=== PATIENT | male | born 1945 | race Caucasian/White ===

== ENCOUNTER 2017-11-30 07:53 | Inpatient (IN) | payer MEDICARE, OTHER ==
[~2017-11-30 07:53] MED LIST: Acetaminophen/oxyCODONE 325-5 MG Tab PO PRN; Bisacodyl 5 MG Tab PO PRN; Bupivacaine 0.75% 30 ML SDV ONE; Dexamethasone 4 MG/ML SDV ONE; Ketamine 500 mg/10 ML MDV ONE; Lactated Ringers 1,000 ML IV SCH; Lactated Ringers 2,000 ML ONE; Lidocaine 1% 4 ML ONE; Lidocaine 1%/Sod Bicarbonate in NS 8.4% 1 ML Syringe IDERM PRN; Magnesium Hydroxide 400 MG/5 ML Susp 30 ML Cup PO PRN; Midazolam 1 MG/ML 2 ML SDV ONE; Morphine 2 MG/ML Syringe IVPUSH PRN; Morphine PF 10 MG/10 ML SDV ONE; Naloxone 0.4 MG/ML SDV IVPUSH PRN; Ondansetron 4 MG/2 ML SDV IVPUSH PRN; Propofol 200 MG/20 ML SDV ONE; Sennosides 8.6 MG Tab PO PRN; Sodium Chloride 0.9% 10 ML Syringe FLUSH PRN
[2017-11-30] MEDS ORDERED: ceFAZolin 1 GM Vial ONE (08:08)
[2017-11-30] MEDS ORDERED: Vancomycin 1 GM SDV ONE (08:08)
[2017-11-30] MEDS ORDERED: Iodine/Sodium Iodide 2% Tincture 30 ML Bottle ONE ×2 (08:09→08:37)
[2017-11-30] MEDS ORDERED: Bupivacaine 0.25% 30 ML SDV ONE (08:09)
[2017-11-30] MEDS ORDERED: fentaNYL 100 MCG/2 ML SDV ONE (08:53)
[2017-11-30] MEDS ORDERED: Phenylephrine/Normal Saline 100 MCG/ML 10 ML Syringe ONE (10:01)
[2017-11-30] MEDS ORDERED: Ondansetron 4 MG/2 ML SDV IVPUSH PRN (10:16)
[2017-11-30] MEDS ORDERED: ePHEDrine 50 MG/ML SDV IVPUSH PRN (10:16)
[2017-11-30] MEDS ORDERED: fentaNYL 100 MCG/2 ML SDV IVPUSH PRN (10:16)
[2017-11-30] MEDS ORDERED: diphenhydrAMINE 50 MG/ML SDV IVPUSH PRN (10:16)
[2017-11-30] MEDS: Morphine 8 MG, EPINEPHrine 0.3 MG, Cefuroxime 750 MG, Ketorolac 30 MG, Sodium Chloride ... ONE ×10 (10:26→13:27)
[2017-11-30] MEDS ORDERED: ePHEDrine/Normal Saline 25 MG/5 ML Syringe ONE (10:33)
[2017-11-30] MEDS ORDERED: Finasteride 5 MG Tab PO SCH ×2 (11:00→16:00)
[2017-11-30] MEDS ORDERED: Tamsulosin 0.4 MG Cap.ER PO SCH ×2 (11:00→16:00)
--- NOTE | 2017-11-30 11:04 | PCM.POSTAN ---
POST ANESTHESIA ASSESSMENT - MENTAL STATUS Mental Status: Alert, Oriented - VITAL SIGNS Pulse Rate: 79 SaO2: 97 Resp Rate: 19 Blood Pressure: 110/66 Temperature: 36.7 C - RESPIRATORY Respiratory Status: Respiratory Rate WNL, Airway Patent, O2 Saturation Stable, Supplemental Oxygen - CARDIOVASCULAR CV Status: Pulse Rate WNL, Blood Pressure Stable - GASTROINTESTINAL GI Status: No Symptoms - PAIN Pain Score: 0 - POST OP HYDRATION Hydration Status: Adequate & Stable
--- NOTE | 2017-11-30 11:08 | PCM.PREANE ---
Preanesthetic Assessment - Anesthesia/Transfusion/Family Hx Anesthesia History: Prior Anesthesia Without Reaction Family History of Anesthesia Reaction: No Transfusion History: No Prior Transfusion(s) - Review of Systems General: No Symptoms Pulmonary: No Symptoms Cardiovascular: No Symptoms, Other (History of A fib once after surgery.) Gastrointestinal: No Symptoms Neurological: No Symptoms, Other (TIA in 2010 no residual effects.) Other: Reports: None - Physical Assessment NPO Status Date: 11/29/17 NPO Status Time: 19:00 Pulse: 79 O2 Sat by Pulse Oximetry: 97 Respiratory Rate: 19 Blood Pressure: 110/66 Temperature: 36.7 C Vital Signs: Last Vital Signs Temp 36.7 C 11/30/17 11:04 Pulse 79 11/30/17 11:04 Resp 19 11/30/17 11:04 BP 110/66 11/30/17 11:04 Pulse Ox 97 11/30/17 11:04 Height: 1.8 m Weight: 105.687 kg ASA Class: 2 Mental Status: Alert & Oriented x3 Airway Class: Mallampati = 2 Dentition: Reports: Normal Dentition Thyro-Mental Finger Breadths: 1 Mouth Opening Finger Breadths: 3 ROM/Head Extension: Full Lungs: Clear to Auscultation, Normal Respiratory Effort Cardiovascular: Regular Rate, Regular Rhythm - Lab Values: Laboratory Last Values MRSA (PCR) Negative 11/15/17 12:08 Blood Type B POSITIVE 11/30/17 08:26 Gel Antibody Screen Negative 11/30/17 08:26 - Allergies Allergies/Adverse Reactions: Allergies Allergy/AdvReac Type Severity Reaction Status Date / Time No Known Allergies Allergy Verified 11/30/17 09:03 - Anesthesia Plan Beta Alena: Metoprolol Med Last Dose Date: 11/30/17 Med Last Dose Time: 06:05 - Acknowledgements Anesthesia Type Planned: Spinal Pt an Appropriate Candidate for the Planned Anesthesia: Yes Alternatives and Risks of Anesthesia Discussed w Pt/Guardian: Yes Pt/Guardian Understands and Agrees with Anesthesia Plan: Yes Additional Comments: 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 Sight hoarseness noted to voice. Binu states it grows back and has been removed several times. PreAnesthesia Questionnaire HEENT History: Reports: Other (See Below) Other HEENT History: Vocal cord lesions Cardiovascular History: Reports: High Cholesterol, Hypertension, Other (See Below) Other Cardiovascular History: Palpitations Respiratory History: Reports: None Gastrointestinal History: Reports: Hemorrhoids Genitourinary History: Reports: Retention, Urinary, Other (See Below) Other Genitourinary History: Elevated PSA Musculoskeletal History: Reports: Osteoarthritis Other Musculoskeletal History: Left hip pain, right knee pain Neurological History: Reports: CVA Psychiatric History: Reports: None Endocrine/Metabolic History: Reports: Obesity/BMI 30+ Hematologic History: Reports: None Immunologic History: Reports: None Oncologic (Cancer) History: Reports: None Dermatologic History: Reports: Other (See Below) Other Dermatologic History: Ingrown nail, actinic dermatitis - Infectious Disease History Infectious Disease History: Reports: None - Past Surgical History Head Surgeries/Procedures: Reports: None Other HEENT Surgeries/Procedures: Removal of vocal cord lesions Cardiovascular Surgical History: Reports: None Respiratory Surgical History: Reports: None GI Surgical History: Reports: None Male Surgical History: Reports: None Endocrine Surgical History: Reports: None Neurological Surgical History: Reports: None Musculoskeletal Surgical History: Reports: None Oncologic Surgical History: Reports: None Dermatological Surgical History: Reports: None - SUBSTANCE USE Smoking Status *Q: Never Smoker Second Hand Smoke Exposure: No Recreational Drug Use History: No - HOME MEDS Home Medications: Home Meds Aspirin [Halfprin] 81 mg PO BID 11/29/17 [History] Finasteride [Proscar] 5 mg PO WITHLUNCH 11/29/17 [History] L.acidoph,Paracasei, B.lactis [Probiotic] 1 cap PO DAILY 11/29/17 [History] Metoprolol Succinate [Toprol XL] 25 mg PO DAILY 11/29/17 [History] Multivitamin [Daily Multiple Vitamin] 1 tab PO DAILY 11/29/17 [History] Pravastatin [Pravachol] 20 mg PO DAILY 11/29/17 [History] Tamsulosin [Tamsulosin 24 Hr] 0.4 mg PO WITHLUNCH 11/29/17 [History] - CURRENT (IN HOUSE) MEDS Current Meds: Current Medications Aspirin (Ecotrin) 325 mg PO BID ROHIT Bisacodyl (Dulcolax) 5 mg PO DAILY PRN PRN Reason: Constipation Diphenhydramine HCl (Benadryl) 25 mg IVPUSH Q6H PRN PRN Reason: Pruritis Docusate Sodium (Colace) 100 mg PO BID ROHIT Ephedrine Sulfate (Ephedrine Sulfate) 5 mg IVPUSH ASDIRECTED PRN PRN Reason: Hypotension Famotidine (Pepcid) 20 mg PO Q12H [facility] Fentanyl (Sublimaze) 50 mcg IVPUSH Q5M PRN PRN Reason: Pain Finasteride (Proscar) 5 mg PO WITHLUNCH [facility] Lactated Ringer's (Ringers, Lactated) 1,000 mls @ 125 mls/hr IV ASDIRECTED [facility] Last Admin: 11/30/17 08:25 Dose: 125 mls/hr Cefazolin Sodium/Dextrose 2 gm (/ Premix) 50 mls @ 100 mls/hr IV Q8H [facility] Stop: 12/01/17 08:29 Ketorolac Tromethamine (Toradol) 15 mg IVPUSH Q6H PRN PRN Reason: Pain Lidocaine/Sodium Bicarbonate (Buffered Lidocaine 1% In Ns 8.4%) 0.25 ml IDERM ONETIME PRN PRN Reason: Prior to IV Start Stop: 11/30/17 18:00 Last Admin: 11/30/17 08:25 Dose: 0.25 ml Magnesium Hydroxide (Milk Of Magnesia) 30 ml PO BID PRN PRN Reason: Constipation Metoprolol Succinate (Toprol Xl) 25 mg PO DAILY [facility] Morphine Sulfate (Morphine) 2 mg IVPUSH Q2H PRN PRN Reason: Breakthrough Pain Multivitamins (Thera) 1 each PO DAILY [facility] Naloxone HCl (Narcan) 0.1 mg IVPUSH Q5M PRN PRN Reason: Oversedation Ondansetron HCl (Zofran) 4 mg IVPUSH Q6H PRN PRN Reason: Nausea/Vomiting Ondansetron HCl (Zofran) 4 mg IVPUSH ONETIME PRN PRN Reason: Nausea/Vomiting Oxycodone/Acetaminophen (Percocet 325-5 Mg) 1 - 2 tab PO Q4H PRN PRN Reason: Pain Saccharomyces Boulardii (Florastor) 250 mg PO DAILY [facility] Senna (Senna) 8.6 mg PO BID PRN PRN Reason: Constipation Simvastatin (Zocor) 10 mg PO DAILY [facility] Sodium Chloride (Saline Flush) 10 ml FLUSH ASDIRECTED PRN PRN Reason: Keep Vein Open Tamsulosin HCl (Flomax) 0.4 mg PO WITHLUNCH [facility] Discontinued Medications Bupivacaine HCl (Sensorcaine-Mpf 0.75%) Confirm Administered Dose 30 ml .ROUTE .STK-MED ONE Stop: 11/30/17 07:43 Bupivacaine HCl (Marcaine 0.25%) Confirm Administered Dose 30 ml .ROUTE .ST- MED ONE Stop: 11/30/17 08:10 Last Admin: 11/30/17 10:26 Dose: 30 ml Cefazolin Sodium (Ancef) Confirm Administered Dose 2 gm .ROUTE .ST-MED ONE Stop: 11/30/17 08:09 Last Admin: 11/30/17 10:21 Dose: 2 gm Morphine Sulfate 8 mg/Epinephrine HCl 0.3 mg/Cefuroxime Sodium 750 mg/Ketorolac Tromethamine 30 mg/Sodium Chloride 27.9 ml 0 mg .XX ONETIME ONE Stop: 11/30/17 09:01 Last Admin: 11/30/17 10:26 Dose: 788.3 mg Dexamethasone (Dexamethasone) Confirm Administered Dose 4 mg .ROUTE .[facility]-MED ONE Stop: 11/30/17 07:42 Ephedrine Sulfate (Ephedrine In Ns) Confirm Administered Dose 25 mg .ROUTE .ST- MED ONE Stop: 11/30/17 10:34 Fentanyl (Sublimaze) Confirm Administered Dose 100 mcg .ROUTE .ST-MED ONE Stop: 11/30/17 08:54 Lactated Ringer's (Ringers, Lactated) Confirm Administered Dose 2,000 mls @ as directed .ROUTE .ST-MED ONE Stop: 11/30/17 07:42 Lidocaine HCl (Xylocaine-Mpf 1%) Confirm Administered Dose 4 mls @ as directed .ROUTE .ST-MED ONE Stop: 11/30/17 07:43 Iodine (Iodine 2% Mild Tincture) Confirm Administered Dose 30 ml .ROUTE .ST- MED ONE Stop: 11/30/17 08:10 Last Admin: 11/30/17 10:19 Dose: 18 ml Iodine (Iodine 2% Mild Tincture) Confirm Administered Dose 30 ml .ROUTE .STK- MED ONE Stop: 11/30/17 08:38 Ketamine HCl (Ketalar) Confirm Administered Dose 500 mg .ROUTE .STK-MED ONE Stop: 11/30/17 07:43 Midazolam HCl (Versed 1 Mg/Ml) Confirm Administered Dose 2 mg .ROUTE .STK-MED ONE Stop: 11/30/17 07:42 Morphine Sulfate (Duramorph Pf) Confirm Administered Dose 10 mg .ROUTE .STK-MED ONE Stop: 11/30/17 07:43 Phenylephrine HCl (Phenylephrine In Ns 100 Mcg/Ml) Confirm Administered Dose 1 mg .ROUTE .STK-MED ONE Stop: 11/30/17 10:02 Propofol (Diprivan 20 Ml) Confirm Administered Dose 600 mg .ROUTE .STK-MED ONE Stop: 11/30/17 07:42 Tranexamic Acid (Cyklokapron) Confirm Administered Dose 1,000 mg .ROUTE .STK- MED ONE Stop: 11/30/17 08:09 Last Admin: 11/30/17 10:28 Dose: 1,000 mg Vancomycin HCl (Vancomycin) Confirm Administered Dose 1 gm .ROUTE .STK-MED ONE Stop: 11/30/17 08:09 Last Admin: 11/30/17 10:27 Dose: 1 gm
--- NOTE | 2017-11-30 11:26 | PCM.CONS ---
H&P History of Present Illness - General Date of Service: 11/30/17 Admit Problem/Dx: Admission Diagnosis/Problem Admission Diagnosis/Problem Osteoarthritis of hip - History of Present Illness Initial Comments - Free Text/Narative: Binu Valdivia is a 72 yo male patient of Dr. Menchaca who is post-operative day 0 of left MONY. Hospital medicine was consulted for post-operative medical care. At this time he is resting comfortably in bed. Pain is controlled. He denies any chest pain, shortness of breath, palpitations, nausea, or vomiting. He carries a history of: Vocal cord lesions, HLD, HTN, palpitations, hemorrhoids, urinary retention, elevated PSA, OA, CVA, obesity. He was never a smoker. He is a full code. His primary care provider is Dr. Abarca in [place]. Left Hip Pain Score (Numeric/FACES): 1 - Related Data Allergies/Adverse Reactions: Allergies Allergy/AdvReac Type Severity Reaction Status Date / Time No Known Allergies Allergy Verified 11/30/17 09:03 Home Medications: Home Meds Aspirin [Halfprin] 81 mg PO 06 11/29/17 [History] Finasteride [Proscar] 5 mg PO 1600 11/29/17 [History] L.acidoph,Paracasei, B.lactis [Probiotic] 1 cap PO 1600 11/29/17 [History] Multivitamin [Daily Multiple Vitamin] 1 tab PO DAILY 11/29/17 [History] Pravastatin [Pravachol] 20 mg PO DAILY 11/29/17 [History] Tamsulosin [Tamsulosin 24 Hr] 0.4 mg PO 1600 11/29/17 [History] Metoprolol Succinate [Toprol XL] 25 mg PO 11/30/17 [History] Past Medical History HEENT History: Reports: Other (See Below) Other HEENT History: Vocal cord lesions Cardiovascular History: Reports: High Cholesterol, Hypertension, Other (See Below) Other Cardiovascular History: Palpitations Respiratory History: Reports: None Gastrointestinal History: Reports: Hemorrhoids Genitourinary History: Reports: Retention, Urinary, Other (See Below) Other Genitourinary History: Elevated PSA Musculoskeletal History: Reports: Osteoarthritis Other Musculoskeletal History: Left hip pain, right knee pain Neurological History: Reports: CVA Psychiatric History: Reports: None Endocrine/Metabolic History: Reports: Obesity/BMI 30+ Hematologic History: Reports: None Immunologic History: Reports: None Oncologic (Cancer) History: Reports: None Dermatologic History: Reports: Other (See Below) Other Dermatologic History: Ingrown nail, actinic dermatitis - Infectious Disease History Infectious Disease History: Reports: None - Past Surgical History Head Surgeries/Procedures: Reports: None Other HEENT Surgeries/Procedures: Removal of vocal cord lesions Cardiovascular Surgical History: Reports: None Respiratory Surgical History: Reports: None GI Surgical History: Reports: None Male Surgical History: Reports: None Endocrine Surgical History: Reports: None Neurological Surgical History: Reports: None Musculoskeletal Surgical History: Reports: None Oncologic Surgical History: Reports: None Dermatological Surgical History: Reports: None Social & Family History - Tobacco Use Smoking Status *Q: Never Smoker Second Hand Smoke Exposure: No - Caffeine Use Caffeine Use: Reports: Coffee - Recreational Drug Use Recreational Drug Use: No Drug Use in Last 12 Months: No H&P Review of Systems - Review of Systems: Review Of Systems: See Below General: Reports: No Symptoms HEENT: Reports: No Symptoms Pulmonary: Reports: No Symptoms Cardiovascular: Reports: No Symptoms Gastrointestinal: Reports: No Symptoms Genitourinary: Reports: No Symptoms Musculoskeletal: Reports: Joint Pain Skin: Reports: No Symptoms Psychiatric: Reports: No Symptoms Neurological: Reports: No Symptoms Hematologic/Lymphatic: Reports: No Symptoms Immunologic: Reports: No Symptoms Exam - Exam Exam: See Below - Vital Signs Vital Signs: Last Vital Signs Temp 98.1 F 11/30/17 11:07 Pulse 72 11/30/17 11:10 Resp 13 11/30/17 11:10 BP 130/72 11/30/17 11:10 Pulse Ox 98 11/30/17 11:10 Weight: 233 lb - Exam Quality Assessment: Supplemental Oxygen, Urinary Catheter, DVT Prophylaxis General: Alert, Oriented, Cooperative. No: Mild Distress HEENT: Conjunctiva Clear, EACs Clear, EOMI, Hearing Intact, Mucosa Moist & [place] , Nares Patent, Posterior Pharynx Clear, PERRLA Neck: Supple, Trachea Midline. No: JVD Lungs: Clear to Auscultation, Normal Respiratory Effort Cardiovascular: Regular Rate, Regular Rhythm GI/Abdominal Exam: Normal Bowel Sounds, Soft, Non-Tender, No Organomegaly, No Distention, Pelvis Stable (Male) Exam: Deferred Rectal (Males) Exam: Deferred Back Exam: Normal Inspection, Full Range of Motion Extremities: No Pedal Edema, Normal Capillary Refill, Leg Pain (1/10), Limited Range of Motion, Other (JONEL bandage on left leg. Bandage is dry and intact. Cooling pack in place. ) Peripheral Pulses: 2+: Radial (L), Radial (R), Posterior Tibial (L), Posterior Tibial (R), Dorsalis Pedis (L), Dorsalis Pedis (R) Skin: Warm, Dry, Intact Neurological: Cranial Nerves Intact (grossly) Neuro Extensive - Mental Status: Alert, Oriented x3, Normal Mood/Affect, Normal Cognition, Memory Intact Psychiatric: Alert, Normal Affect, Normal Mood - Patient Data Lab Results Last 24 hrs: Laboratory Results - last 24 hr 11/30/17 Range/Units 08:26 Blood Type B POSITIVE Gel Antibody Screen Negative Consult PN Assessment/Plan POD#: 0 (1) S/P total hip arthroplasty SNOMED Code(s): 106514557556, 261138429340 Code(s): Z96.649 - PRESENCE OF UNSPECIFIED ARTIFICIAL HIP JOINT Priority: High Current Visit: Yes Qualifiers: Laterality: left Qualified Code(s): Z96.642 - Presence of left artificial hip joint (2) Osteoarthritis SNOMED Code(s): 855078997 Code(s): M19.90 - UNSPECIFIED OSTEOARTHRITIS, UNSPECIFIED SITE Priority: High Current Visit: Yes Qualifiers: Osteoarthritis location: hip Osteoarthritis type: primary Laterality: left Qualified Code(s): M16.12 - Unilateral primary osteoarthritis, left hip (3) HLD (hyperlipidemia) SNOMED Code(s): 97627173 Code(s): E78.5 - HYPERLIPIDEMIA, UNSPECIFIED Priority: Low Current Visit : No Qualifiers: Hyperlipidemia type: unspecified Qualified Code(s): E78.5 - Hyperlipidemia , unspecified (4) HTN (hypertension) SNOMED Code(s): 00413615 Code(s): I10 - ESSENTIAL (PRIMARY) HYPERTENSION Priority: Low Current Visit: No Qualifiers: Hypertension type: unspecified Qualified Code(s): I10 - Essential (primary ) hypertension (5) Urinary retention SNOMED Code(s): 360554148 Code(s): R33.9 - RETENTION OF URINE, UNSPECIFIED Current Visit: Yes (6) History of CVA (cerebrovascular accident) SNOMED Code(s): 814264817 Code(s): Z86.73 - PRSNL HX OF TIA (TIA), AND CEREB INFRC W/O RESID DEFICITS Current Visit: Yes Problem List Initiated/Reviewed/Updated: Yes Plan: I/P: Acute: S/P left[left/right] total hip arthroplasty - post-operative day 0 -DVT prophylaxis and pain management per primary care team -PT/OT -IS/RT -Monitor oxygen saturation -Titrate oxygen as needed -Vital signs stable -Monitor labs -Pre-operative Hgb was 15.3 -Pre-operative eGFR was 87 Osteoarthritis of left hip -Pain management per primary care team Chronic: Vocal cord lesions HLD HTN palpitations hemorrhoids urinary retention elevated PSA OA CVA obesity Plan: CM for discharge planning GI prophylaxis Home medications as indicated Other orders as listed above Routine AM labs He is a full code. His PCP is Dr. Abarca in [place] Thank you for allowing us to participate in the care of this patient!! Requesting Provider: Dr. Menchaca Date Consult Requested: 11/30/17 Reason for Consult: Post-operative medical care Patient History Reviewed: Yes Admission H&P Reviewed: Yes Time Spent (in minutes): 45
--- NOTE | 2017-11-30 11:29 | CR ---
Pelvis and left hip: AP view of the pelvis was obtained as well as AP view centered to the left hip and lateral view of the left hip. Comparison: No previous pelvis or hip exam. Left hip prosthesis is noted. Components are aligned. Underlying bony structures are intact. Soft tissue air is noted from the surgical procedure. No additional abnormality is noted. Impression: 1. Satisfactory radiographic appearance of recently placed left hip prosthesis. Diagnostic code #2
[2017-11-30] MEDS ORDERED: Simvastatin 10 MG Tab PO ONE (13:27)
[2017-11-30] MEDS: ceFAZolin 2 GM in Premix Bag 1 BAG IV SCH ×2 (15:21→23:18)
[2017-11-30] MEDS: Metoprolol Succinate 25 MG Tab.ER PO SCH (17:04)
[2017-11-30] MEDS: Famotidine 20 MG Tab PO SCH (20:45)
[2017-11-30] MEDS: Ketorolac 15 MG/ML SDV IVPUSH PRN (20:46)
[2017-11-30] MEDS: Docusate Sodium 100 MG Cap PO SCH (20:46)
[2017-12-01] MEDS ORDERED: Acetaminophen 325 MG Tab PO PRN (04:00)
[2017-12-01] MEDS: Ketorolac 15 MG/ML SDV IVPUSH PRN ×2 (06:27→12:42)
[2017-12-01] MEDS: Metoprolol Succinate 25 MG Tab.ER PO SCH (06:28)
--- NOTE | 2017-12-01 06:45 | PCM.CONSN ---
- General Info Date of Service: 12/01/17 Admission Dx/Problem (Free Text): Admission Diagnosis/Problem Admission Diagnosis/Problem Osteoarthritis of hip Subjective Update: In to see Binu. He is doing well. He has urinated. He has been up walking and working with PT/OT. No concerns from him. No concerns from nursing. Functional Status: Reports: Pain Controlled, Tolerating Diet, Ambulating, Urinating, Incentive Spirometry. Denies: New Symptoms - Review of Systems General: Reports: No Symptoms HEENT: Reports: No Symptoms Pulmonary: Reports: No Symptoms Cardiovascular: Reports: No Symptoms Gastrointestinal: Reports: No Symptoms Genitourinary: Reports: No Symptoms Musculoskeletal: Reports: Joint Pain Skin: Reports: No Symptoms Neurological: Reports: No Symptoms Psychiatric: Reports: No Symptoms - Patient Data Vitals - Most Recent: Last Vital Signs Temp 98.1 F 11/30/17 20:44 Pulse 76 12/01/17 06:28 Resp 16 12/01/17 04:00 BP 140/89 12/01/17 06:28 Pulse Ox 16 L 12/01/17 05:00 Weight - Most Recent: 243 lb 9.6 oz I&O - Last 24 Hours: Intake & Output 11/30/17 11/30/17 12/01/17 14:59 22:59 06:59 Intake Total 300 1250 1450 Output Total 200 500 400 Balance 289 571 1314 Lab Results Last 24 Hours: Laboratory Results - last 24 hr 11/30/17 Range/Units 08:26 Blood Type B POSITIVE Gel Antibody Screen Negative Med Orders - Current: Current Medications Acetaminophen (Tylenol) 650 mg PO Q6H PRN PRN Reason: Pain (moderate 4-6) Last Admin: 12/01/17 04:11 Dose: 650 mg Aspirin (Ecotrin) 325 mg PO BID [facility] Bisacodyl (Dulcolax) 5 mg PO DAILY PRN PRN Reason: Constipation Diphenhydramine HCl (Benadryl) 25 mg IVPUSH Q6H PRN PRN Reason: Pruritis Docusate Sodium (Colace) 100 mg PO BID [facility] Last Admin: 11/30/17 20:46 Dose: 100 mg Ephedrine Sulfate (Ephedrine Sulfate) 5 mg IVPUSH ASDIRECTED PRN PRN Reason: Hypotension Famotidine (Pepcid) 20 mg PO Q12H [facility] Last Admin: 11/30/17 20:45 Dose: 20 mg Finasteride (Proscar) 5 mg PO DAILY@1600 [facility] Last Admin: 11/30/17 15:22 Dose: 5 mg Cefazolin Sodium/Dextrose 2 gm (/ Premix) 50 mls @ 100 mls/hr IV Q8H [facility] Stop: 12/01/17 08:29 Last Admin: 11/30/17 23:18 Dose: 100 mls/hr Ketorolac Tromethamine (Toradol) 15 mg IVPUSH Q6H PRN PRN Reason: Pain Last Admin: 12/01/17 06:27 Dose: 15 mg Magnesium Hydroxide (Milk Of Magnesia) 30 ml PO BID PRN PRN Reason: Constipation Metoprolol Succinate (Toprol Xl) 25 mg PO [facility] Last Admin: 12/01/17 06:28 Dose: 25 mg Morphine Sulfate (Morphine) 2 mg IVPUSH Q2H PRN PRN Reason: Breakthrough Pain Multivitamins (Thera) 1 each PO DAILY [facility] Naloxone HCl (Narcan) 0.1 mg IVPUSH Q5M PRN PRN Reason: Oversedation Ondansetron HCl (Zofran) 4 mg IVPUSH Q6H PRN PRN Reason: Nausea/Vomiting Oxycodone/Acetaminophen (Percocet 325-5 Mg) 1 - 2 tab PO Q4H PRN PRN Reason: Pain Saccharomyces Boulardii (Florastor) 250 mg PO DAILY [facility] Senna (Senna) 8.6 mg PO BID PRN PRN Reason: Constipation Simvastatin (Zocor) 10 mg PO DAILY [facility] Sodium Chloride (Saline Flush) 10 ml FLUSH ASDIRECTED PRN PRN Reason: Keep Vein Open Tamsulosin HCl (Flomax) 0.4 mg PO DAILY@1600 [facility] Last Admin: 11/30/17 15:22 Dose: 0.4 mg Discontinued Medications Bupivacaine HCl (Sensorcaine-Mpf 0.75%) Confirm Administered Dose 30 ml .ROUTE .STK-MED ONE Stop: 11/30/17 07:43 Bupivacaine HCl (Marcaine 0.25%) Confirm Administered Dose 30 ml .ROUTE .STK- MED ONE Stop: 11/30/17 08:10 Last Admin: 11/30/17 10:26 Dose: 30 ml Cefazolin Sodium (Ancef) Confirm Administered Dose 2 gm .ROUTE .STK-MED ONE Stop: 11/30/17 08:09 Last Admin: 11/30/17 10:21 Dose: 2 gm Morphine Sulfate 8 mg/Epinephrine HCl 0.3 mg/Cefuroxime Sodium 750 mg/Ketorolac Tromethamine 30 mg/Sodium Chloride 27.9 ml 0 mg .XX ONETIME ONE Stop: 11/30/17 09:01 Last Admin: 11/30/17 13:27 Dose: Not Given Dexamethasone (Dexamethasone) Confirm Administered Dose 4 mg .ROUTE .STK-MED ONE Stop: 11/30/17 07:42 Ephedrine Sulfate (Ephedrine In Ns) Confirm Administered Dose 25 mg .ROUTE .STK- MED ONE Stop: 11/30/17 10:34 Fentanyl (Sublimaze) Confirm Administered Dose 100 mcg .ROUTE .STK-MED ONE Stop: 11/30/17 08:54 Fentanyl (Sublimaze) 50 mcg IVPUSH Q5M PRN PRN Reason: Pain [facility] Last Admin: 11/30/17 13:06 Dose: Not Given Lactated Ringer's (Ringers, Lactated) 1,000 mls @ 125 mls/hr IV ASDIRECTED [facility] Last Admin: 11/30/17 08:25 Dose: 125 mls/hr Lactated Ringer's (Ringers, Lactated) Confirm Administered Dose 2,000 mls @ as directed .ROUTE .STK-MED ONE Stop: 11/30/17 07:42 Lidocaine HCl (Xylocaine-Mpf 1%) Confirm Administered Dose 4 mls @ as directed .ROUTE .STK-MED ONE Stop: 11/30/17 07:43 Iodine (Iodine 2% Mild Tincture) Confirm Administered Dose 30 ml .ROUTE .STK- MED ONE Stop: 11/30/17 08:10 Last Admin: 11/30/17 10:19 Dose: 18 ml Iodine (Iodine 2% Mild Tincture) Confirm Administered Dose 30 ml .ROUTE .STK- MED ONE Stop: 11/30/17 08:38 Ketamine HCl (Ketalar) Confirm Administered Dose 500 mg .ROUTE .STK-MED ONE Stop: 11/30/17 07:43 Lidocaine/Sodium Bicarbonate (Buffered Lidocaine 1% In Ns 8.4%) 0.25 ml IDERM ONETIME PRN PRN Reason: Prior to IV Start Stop: 11/30/17 18:00 Last Admin: 11/30/17 08:25 Dose: 0.25 ml Metoprolol Succinate (Toprol Xl) 25 mg PO DAILY [facility] Midazolam HCl (Versed 1 Mg/Ml) Confirm Administered Dose 2 mg .ROUTE .STK-MED ONE Stop: 11/30/17 07:42 Morphine Sulfate (Duramorph Pf) Confirm Administered Dose 10 mg .ROUTE .STK-MED ONE Stop: 11/30/17 07:43 Ondansetron HCl (Zofran) 4 mg IVPUSH ONETIME PRN PRN Reason: Nausea/Vomiting Phenylephrine HCl (Phenylephrine In Ns 100 Mcg/Ml) Confirm Administered Dose 1 mg .ROUTE .STK-MED ONE Stop: 11/30/17 10:02 Propofol (Diprivan 20 Ml) Confirm Administered Dose 600 mg .ROUTE .STK-MED ONE Stop: 11/30/17 07:42 Simvastatin (Zocor) 10 mg PO ONETIME ONE Stop: 11/30/17 13:28 Last Admin: 11/30/17 13:44 Dose: 10 mg Tamsulosin HCl (Flomax) 0.4 mg PO WITHLUNCH [facility] Last Admin: 11/30/17 13:06 Dose: Not Given Tranexamic Acid (Cyklokapron) Confirm Administered Dose 1,000 mg .ROUTE .STK- MED ONE Stop: 11/30/17 08:09 Last Admin: 11/30/17 10:28 Dose: 1,000 mg Vancomycin HCl (Vancomycin) Confirm Administered Dose 1 gm .ROUTE .STK-MED ONE Stop: 11/30/17 08:09 Last Admin: 11/30/17 10:27 Dose: 1 gm - Exam Quality Assessment: DVT Prophylaxis General: Alert, Oriented, Cooperative, No Acute Distress HEENT: Pupils Equal, Pupils Reactive, EOMI, Mucous Membr. Moist/[place] Neck: Supple, Trachea Midline, No JVD Lungs: Clear to Auscultation, Normal Respiratory Effort Cardiovascular: Regular Rate, Regular Rhythm GI/Abdominal Exam: Normal Bowel Sounds, Soft, Non-Tender, No Distention (Male) Exam: Deferred Back Exam: Normal Inspection, Full Range of Motion Extremities: No Pedal Edema, Normal Capillary Refill, Leg Pain, Limited Range of Motion, Other (JONEL bandage and cooling pack in place on left leg ) Peripheral Pulses: 2+: Radial (L), Radial (R), Posterior Tibial (L), Posterior Tibial (R), Dorsalis Pedis (L), Dorsalis Pedis (R) Skin: Warm, Dry, Intact Wound/Incisions: Healing Well, Dressing Dry and Intact, No Drainage Neurological: No New Focal Deficit Psy/Mental Status: Alert, Normal Affect, Normal Mood Consult PN Assessment/Plan POD#: 1 (1) S/P total hip arthroplasty SNOMED Code(s): 013717410255, 691648470011 Code(s): Z96.649 - PRESENCE OF UNSPECIFIED ARTIFICIAL HIP JOINT Priority: High Current Visit: Yes Qualifiers: Laterality: left Qualified Code(s): Z96.642 - Presence of left artificial hip joint (2) Osteoarthritis SNOMED Code(s): 582219852 Code(s): M19.90 - UNSPECIFIED OSTEOARTHRITIS, UNSPECIFIED SITE Priority: High Current Visit: Yes Qualifiers: Osteoarthritis location: hip Osteoarthritis type: primary Laterality: left Qualified Code(s): M16.12 - Unilateral primary osteoarthritis, left hip (3) HLD (hyperlipidemia) SNOMED Code(s): 39309743 Code(s): E78.5 - HYPERLIPIDEMIA, UNSPECIFIED Priority: Low Current Visit : No Qualifiers: Hyperlipidemia type: unspecified Qualified Code(s): E78.5 - Hyperlipidemia , unspecified (4) HTN (hypertension) SNOMED Code(s): 66154052 Code(s): I10 - ESSENTIAL (PRIMARY) HYPERTENSION Priority: Low Current Visit: No Qualifiers: Hypertension type: unspecified Qualified Code(s): I10 - Essential (primary ) hypertension (5) Urinary retention SNOMED Code(s): 361388749 Code(s): R33.9 - RETENTION OF URINE, UNSPECIFIED Current Visit: Yes (6) History of CVA (cerebrovascular accident) SNOMED Code(s): 329453304 Code(s): Z86.73 - PRSNL HX OF TIA (TIA), AND CEREB INFRC W/O RESID DEFICITS Current Visit: Yes Problem List Initiated/Reviewed/Updated: Yes Plan: I/P: Acute: S/P left total hip arthroplasty - post-operative day 1 -DVT prophylaxis and pain management per primary care team -PT/OT -IS/RT -Monitor oxygen saturation -Titrate oxygen as needed - weaned off -Vital signs stable -Monitor labs -Pre-operative Hgb was 15.3, today 12.5 -Pre-operative eGFR was 87, today >60 Osteoarthritis of left hip -Pain management per primary care team Chronic: Vocal cord lesions HLD HTN palpitations hemorrhoids urinary retention elevated PSA OA CVA obesity Plan: CM for discharge planning GI prophylaxis Home medications as indicated Other orders as listed above Routine AM labs He is a full code. His PCP is Dr. Abarca in [place] From a hospitalist standpoint he is doing very well. He has been ambulating and working with PT/OT. He has urinated. Labs look good. Vitals are stable. He has been weaned off oxygen. From a hospitalist standpoint he is cleared for discharge pending primary team approval. Thank you for allowing us to participate in the care of this patient!!
[2017-12-01] MEDS ORDERED: Multivitamins,Therapeutic Tab PO SCH (09:00)
[2017-12-01] MEDS ORDERED: Saccharomyces Boulardii (Probiotic) 250 MG Cap PO SCH (09:00)
[2017-12-01] MEDS ORDERED: Aspirin 325 MG Tab.EC PO SCH (09:00)
[2017-12-01] MEDS ORDERED: Metoprolol Succinate 25 MG Tab.ER PO SCH (09:00)
[2017-12-01] MEDS ORDERED: Simvastatin 10 MG Tab PO SCH (09:00)
[2017-12-01] MEDS: Famotidine 20 MG Tab PO SCH (10:43)
[2017-12-01] MEDS: Docusate Sodium 100 MG Cap PO SCH (10:43)
[2017-12-01] MEDS: ceFAZolin 2 GM in Premix Bag 1 BAG IV SCH (10:44)
--- NOTE | 2017-12-01 11:44 | PCM.SURGPN ---
- General Info Date of Service: 12/01/17 POD#: 1 Functional Status: Reports: Pain Controlled, Tolerating Diet, Ambulating, Urinating, Incentive Spirometry, Other (The pt and state the pt is prepared for discharge to home.) - Review of Systems General: Denies: Fever, Chills Musculoskeletal: Reports: Other (The pt has met inpatient therapy goals.) - Patient Data Vitals - Most Recent: Last Vital Signs Temp 98.2 F 12/01/17 04:37 Pulse 76 12/01/17 06:28 Resp 16 12/01/17 07:00 BP 140/89 12/01/17 06:28 Pulse Ox 94 L 12/01/17 06:00 Weight - Most Recent: 243 lb 9.6 oz I&O - Last 24 Hours: Intake & Output 11/30/17 12/01/17 12/01/17 22:59 06:59 14:59 Intake Total 1250 1450 Output Total 500 400 Balance 750 1050 Lab Results Last 24 Hrs: Laboratory Results - last 24 hr 12/01/17 12/01/17 Range/Units 06:00 06:00 WBC 10.14 H (4.23-9.07) K/mm3 RBC 4.06 L (4.63-6.08) M/mm3 Hgb 12.5 L (13.7-17.5) gm/L Hct 38.2 L (40.1-51.0) % MCV 94.1 H (79.0-92.2) fl MCH 30.8 (25.7-32.2) pg MCHC 32.7 (32.2-35.5) g/dl RDW Std Deviation 45.3 H (35.1-43.9) fL Plt Count 174 (163-337) K/mm3 MPV 9.6 (9.4-12.3) fl Sodium 136 (136-145) mEq/L Potassium 4.0 (3.5-5.1) mEq/L Chloride 103 (98-107) mEq/L Carbon Dioxide 25 (21-32) mEq/L Anion Gap 12.0 (5-15) BUN 17 (7-18) mg/dL Creatinine 1.1 (0.7-1.3) mg/dL Est Cr Clr Drug Dosing 62.75 mL/min Estimated GFR (MDRD) > 60 (>60) mL/min BUN/Creatinine Ratio 15.5 (14-18) Glucose 112 (83-115) mg/dL Calcium 8.4 L (8.5-10.1) mg/dL Total Bilirubin 0.4 (0.2-1.0) mg/dL AST 26 (15-37) U/L ALT 14 L (16-63) U/L Alkaline Phosphatase 52 (46-116) U/L Total Protein 5.8 L (6.4-8.2) g/dl Albumin 3.1 L (3.4-5.0) g/dl Globulin 2.7 gm/dL Albumin/Globulin Ratio 1.2 (1-2) Med Orders - Current: Current Medications Acetaminophen (Tylenol) 650 mg PO Q6H PRN PRN Reason: Pain (moderate 4-6) Last Admin: 12/01/17 04:11 Dose: 650 mg Aspirin (Ecotrin) 325 mg PO BID [facility] Last Admin: 12/01/17 10:43 Dose: 325 mg Bisacodyl (Dulcolax) 5 mg PO DAILY PRN PRN Reason: Constipation Diphenhydramine HCl (Benadryl) 25 mg IVPUSH Q6H PRN PRN Reason: Pruritis Docusate Sodium (Colace) 100 mg PO BID [facility] Last Admin: 12/01/17 10:43 Dose: 100 mg Ephedrine Sulfate (Ephedrine Sulfate) 5 mg IVPUSH ASDIRECTED PRN PRN Reason: Hypotension Famotidine (Pepcid) 20 mg PO Q12H [facility] Last Admin: 12/01/17 10:43 Dose: 20 mg Finasteride (Proscar) 5 mg PO DAILY@1600 [facility] Last Admin: 11/30/17 15:22 Dose: 5 mg Ketorolac Tromethamine (Toradol) 15 mg IVPUSH Q6H PRN PRN Reason: Pain Last Admin: 12/01/17 06:27 Dose: 15 mg Magnesium Hydroxide (Milk Of Magnesia) 30 ml PO BID PRN PRN Reason: Constipation Metoprolol Succinate (Toprol Xl) 25 mg PO [facility] Last Admin: 12/01/17 06:28 Dose: 25 mg Morphine Sulfate (Morphine) 2 mg IVPUSH Q2H PRN PRN Reason: Breakthrough Pain Multivitamins (Thera) 1 each PO DAILY [facility] Last Admin: 12/01/17 10:42 Dose: 1 each Naloxone HCl (Narcan) 0.1 mg IVPUSH Q5M PRN PRN Reason: Oversedation Ondansetron HCl (Zofran) 4 mg IVPUSH Q6H PRN PRN Reason: Nausea/Vomiting Oxycodone/Acetaminophen (Percocet 325-5 Mg) 1 - 2 tab PO Q4H PRN PRN Reason: Pain Saccharomyces Boulardii (Florastor) 250 mg PO DAILY [facility] Last Admin: 12/01/17 10:42 Dose: 250 mg Senna (Senna) 8.6 mg PO BID PRN PRN Reason: Constipation Simvastatin (Zocor) 10 mg PO DAILY [facility] Last Admin: 12/01/17 10:42 Dose: 10 mg Sodium Chloride (Saline Flush) 10 ml FLUSH ASDIRECTED PRN PRN Reason: Keep Vein Open Tamsulosin HCl (Flomax) 0.4 mg PO DAILY@1600 [facility] Last Admin: 11/30/17 15:22 Dose: 0.4 mg Discontinued Medications Bupivacaine HCl (Sensorcaine-Mpf 0.75%) Confirm Administered Dose 30 ml .ROUTE .STK-MED ONE Stop: 11/30/17 07:43 Bupivacaine HCl (Marcaine 0.25%) Confirm Administered Dose 30 ml .ROUTE .STK- MED ONE Stop: 11/30/17 08:10 Last Admin: 11/30/17 10:26 Dose: 30 ml Cefazolin Sodium (Ancef) Confirm Administered Dose 2 gm .ROUTE .STK-MED ONE Stop: 11/30/17 08:09 Last Admin: 11/30/17 10:21 Dose: 2 gm Morphine Sulfate 8 mg/Epinephrine HCl 0.3 mg/Cefuroxime Sodium 750 mg/Ketorolac Tromethamine 30 mg/Sodium Chloride 27.9 ml 0 mg .XX ONETIME ONE Stop: 11/30/17 09:01 Last Admin: 11/30/17 13:27 Dose: Not Given Dexamethasone (Dexamethasone) Confirm Administered Dose 4 mg .ROUTE .STK-MED ONE Stop: 11/30/17 07:42 Ephedrine Sulfate (Ephedrine In Ns) Confirm Administered Dose 25 mg .ROUTE .STK- MED ONE Stop: 11/30/17 10:34 Fentanyl (Sublimaze) Confirm Administered Dose 100 mcg .ROUTE .STK-MED ONE Stop: 11/30/17 08:54 Fentanyl (Sublimaze) 50 mcg IVPUSH Q5M PRN PRN Reason: Pain Finasteride (Proscar) 5 mg PO WITHLUNCH [facility] Last Admin: 11/30/17 13:06 Dose: Not Given Lactated Ringer's (Ringers, Lactated) 1,000 mls @ 125 mls/hr IV ASDIRECTED [facility] Last Admin: 11/30/17 08:25 Dose: 125 mls/hr Cefazolin Sodium/Dextrose 2 gm (/ Premix) 50 mls @ 100 mls/hr IV Q8H [facility] Stop: 12/01/17 08:29 Last Admin: 12/01/17 10:44 Dose: 100 mls/hr Lactated Ringer's (Ringers, Lactated) Confirm Administered Dose 2,000 mls @ as directed .ROUTE .STK-MED ONE Stop: 11/30/17 07:42 Lidocaine HCl (Xylocaine-Mpf 1%) Confirm Administered Dose 4 mls @ as directed .ROUTE .STK-MED ONE Stop: 11/30/17 07:43 Iodine (Iodine 2% Mild Tincture) Confirm Administered Dose 30 ml .ROUTE .STK- MED ONE Stop: 11/30/17 08:10 Last Admin: 11/30/17 10:19 Dose: 18 ml Iodine (Iodine 2% Mild Tincture) Confirm Administered Dose 30 ml .ROUTE .STK- MED ONE Stop: 11/30/17 08:38 Ketamine HCl (Ketalar) Confirm Administered Dose 500 mg .ROUTE .STK-MED ONE Stop: 11/30/17 07:43 Lidocaine/Sodium Bicarbonate (Buffered Lidocaine 1% In Ns 8.4%) 0.25 ml IDERM ONETIME PRN PRN Reason: Prior to IV Start Stop: 11/30/17 18:00 Last Admin: 11/30/17 08:25 Dose: 0.25 ml Metoprolol Succinate (Toprol Xl) 25 mg PO DAILY [facility] Midazolam HCl (Versed 1 Mg/Ml) Confirm Administered Dose 2 mg .ROUTE .STK-MED ONE Stop: 11/30/17 07:42 Morphine Sulfate (Duramorph Pf) Confirm Administered Dose 10 mg .ROUTE .STK-MED ONE Stop: 11/30/17 07:43 Ondansetron HCl (Zofran) 4 mg IVPUSH ONETIME PRN PRN Reason: Nausea/Vomiting Phenylephrine HCl (Phenylephrine In Ns 100 Mcg/Ml) Confirm Administered Dose 1 mg .ROUTE .STK-MED ONE Stop: 11/30/17 10:02 Propofol (Diprivan 20 Ml) Confirm Administered Dose 600 mg .ROUTE .STK-MED ONE Stop: 11/30/17 07:42 Simvastatin (Zocor) 10 mg PO ONETIME ONE Stop: 11/30/17 13:28 Last Admin: 11/30/17 13:44 Dose: 10 mg Tamsulosin HCl (Flomax) 0.4 mg PO WITHLUNCH [facility] Last Admin: 11/30/17 13:06 Dose: Not Given Tranexamic Acid (Cyklokapron) Confirm Administered Dose 1,000 mg .ROUTE .STK- MED ONE Stop: 11/30/17 08:09 Last Admin: 11/30/17 10:28 Dose: 1,000 mg Vancomycin HCl (Vancomycin) Confirm Administered Dose 1 gm .ROUTE .STK-MED ONE Stop: 11/30/17 08:09 Last Admin: 11/30/17 10:27 Dose: 1 gm - Exam Wound/Incisions: Dressing Dry and Intact General: Alert, Cooperative, No Acute Distress Lungs: Normal Respiratory Effort Extremities: Other (NVS intact for BLE. Left thigh soft. Homans negative for LLE.) - Problem List Review Problem List Initiated/Reviewed/Updated: Yes - My Orders Last 24 Hours: Active Orders 24 hr Category Date Time Status Ready for Discharge [RC] PER UNIT ROUTINE Care 12/01/17 10:58 Active Regular Diet [DIET] Diet 11/30/17 Lunch Active Acetaminophen [Tylenol] Med 12/01/17 04:00 Active 650 mg PO Q6H PRN Aspirin [Ecotrin] Med 12/01/17 09:00 Active 325 mg PO BID Docusate Sodium [Colace] Med 11/30/17 21:00 Active 100 mg PO BID Famotidine [Pepcid] Med 11/30/17 21:00 Active 20 mg PO Q12H Finasteride [Proscar] Med 11/30/17 16:00 Active 5 mg PO DAILY@1600 Metoprolol Succinate [Toprol XL] Med 11/30/17 18:00 Active 25 mg PO Multivitamins,Therapeutic [Thera] Med 12/01/17 09:00 Active 1 each PO DAILY Saccharomyces Boulardii [Florastor] Med 12/01/17 09:00 Active 250 mg PO DAILY Simvastatin [Zocor] Med 12/01/17 09:00 Active 10 mg PO DAILY Tamsulosin [Flomax] Med 11/30/17 16:00 Active 0.4 mg PO DAILY@1600 Medication Orders Acetaminophen (Tylenol) 650 mg PO Q6H PRN PRN Reason: Pain (moderate 4-6) Last Admin: 12/01/17 04:11 Dose: 650 mg Aspirin (Ecotrin) 325 mg PO BID [facility] Last Admin: 12/01/17 10:43 Dose: 325 mg Bisacodyl (Dulcolax) 5 mg PO DAILY PRN PRN Reason: Constipation Diphenhydramine HCl (Benadryl) 25 mg IVPUSH Q6H PRN PRN Reason: Pruritis Docusate Sodium (Colace) 100 mg PO BID [facility] Last Admin: 12/01/17 10:43 Dose: 100 mg Admin: 11/30/17 20:46 Dose: 100 mg Ephedrine Sulfate (Ephedrine Sulfate) 5 mg IVPUSH ASDIRECTED PRN PRN Reason: Hypotension Famotidine (Pepcid) 20 mg PO Q12H [facility] Last Admin: 12/01/17 10:43 Dose: 20 mg Admin: 11/30/17 20:45 Dose: 20 mg Finasteride (Proscar) 5 mg PO DAILY@1600 [facility] Last Admin: 11/30/17 15:22 Dose: 5 mg Ketorolac Tromethamine (Toradol) 15 mg IVPUSH Q6H PRN PRN Reason: Pain Last Admin: 12/01/17 06:27 Dose: 15 mg Admin: 11/30/17 20:46 Dose: 15 mg Magnesium Hydroxide (Milk Of Magnesia) 30 ml PO BID PRN PRN Reason: Constipation Metoprolol Succinate (Toprol Xl) 25 mg PO [facility] Last Admin: 12/01/17 06:28 Dose: 25 mg Admin: 11/30/17 17:04 Dose: 25 mg Morphine Sulfate (Morphine) 2 mg IVPUSH Q2H PRN PRN Reason: Breakthrough Pain Multivitamins (Thera) 1 each PO DAILY [facility] Last Admin: 12/01/17 10:42 Dose: 1 each Naloxone HCl (Narcan) 0.1 mg IVPUSH Q5M PRN PRN Reason: Oversedation Ondansetron HCl (Zofran) 4 mg IVPUSH Q6H PRN PRN Reason: Nausea/Vomiting Oxycodone/Acetaminophen (Percocet 325-5 Mg) 1 - 2 tab PO Q4H PRN PRN Reason: Pain Saccharomyces Boulardii (Florastor) 250 mg PO DAILY [facility] Last Admin: 12/01/17 10:42 Dose: 250 mg Senna (Senna) 8.6 mg PO BID PRN PRN Reason: Constipation Simvastatin (Zocor) 10 mg PO DAILY [facility] Last Admin: 12/01/17 10:42 Dose: 10 mg Sodium Chloride (Saline Flush) 10 ml FLUSH ASDIRECTED PRN PRN Reason: Keep Vein Open Tamsulosin HCl (Flomax) 0.4 mg PO DAILY@1600 [facility] Last Admin: 11/30/17 15:22 Dose: 0.4 mg - Assessment Assessment (Free Text/Narrative):: POD#1 - left MONY - Plan Plan (Free Text/Narrative):: 1. Hgb 12.5. 2. Discharge to home today. The pt has been cleared by Hospitalist service. 3. ASA 325mg PO BID, frequent mobility, TEDs. 4. MONY precautions discussed. The pt's case has been discussed with Dr. Menchaca.
--- NOTE | 2017-12-01 11:45 | PCM.DCSUM1 ---
Discharge Summary - Hospital Course Brief History: Binu is a 72 yo male who underwent left MONY with Dr. Menchaca on . The procedure was completed under spinal anesthesia with MAC. The pt tolerated the procedure well and was admitted to the Medical-Surgical Unit. The pt received Ancef jonathan-operatively. He participated in P.T. and O.T. and progressed well. He was allowed to WBAT and used a FWW for mobility. MONY precautions were followed. The pt's surgical wound was dressed with a Mepilex dressing and remained clean and dry. On POD#1, the pt was started on 325mg ASA BID for VTE prophylaxis. The pt used TEDs and SCDs also. On POD#1, the pt's hemoglobin was 12.5. Medical management was provided by the Hospitalist service and the pt's hospital course was uneventful. On POD#1, the pt was deemed appropriate for discharge to home with his family. - Discharge Data Discharge Date: 12/01/17 Discharge Disposition: Home, Self-Care 01 Condition: Good - Patient Summary/Data Consults: Consultations 11/30/17 06:51 OT Evaluation and Treatment [CONS] Routine PT Evaluation and Treatment [CONS] Routine 11/30/17 06:53 Consult to Physician [CONS] Routine - Patient Instructions Diet: Usual Diet as Tolerated Activity: Apply Ice, As Tolerated, Elevate Extremity, Full Weight Bearing Activity, Other: Total hip precautions are to be followed. Driving: Do Not Drive Showering/Bathing: May Shower Showering/Bathing, Other: Keep the dressing in place with showering. Wound/Incision Care: Keep Operative Site/Wound Site Clean and Dry, Do NOT Change Dressing Notify Provider of: Fever, Increased Pain, Swelling and Redness, Drainage, Nausea and/or Vomiting Other/Special Instructions: Please get up and moving around every hour while awake. This helps to prevent blood clots. Please use your walker and have help with mobility as needed. Please take 325mg Aspirin TWICE daily. The aspirin is being used for blood clot prevention and not for pain management so please do not miss a dose of the medication. You do NOT also have to use an 81mg aspirin while using the 2 tablets of 325mg aspirin. At home, please complete the exercises that you learned during the Hospital stay. Schedule for physical therapy. Use the pain medication as needed. The medication may cause drowsiness and constipation. Contact your primary care provider for instructions if you are constipated. You may use a stool softener like docusate sodium or Colace 100mg twice daily and/or a laxative like Miralax daily for constipation. Increase your water and fiber intake while you are using the pain medication. Please try to wean from use of the pain medication as soon as able. Wear the BRIGITTE hose during the day and you may remove these at night. Elevate the limb to decrease swelling. Place ice to the area often. Place a towel between your skin and the blue pad. Use the incentive spirometer often. Take deep breaths throughout the day. Increase your protein intake while you are healing. Call the Clinic with questions or concerns - [phone]. - Discharge Plan Prescriptions/Med Rec: Acetaminophen/oxyCODONE [Percocet 325-5 MG] 1 - 2 tab PO Q6H PRN #60 tablet PRN Reason: Pain Aspirin [Ecotrin] 325 mg PO BID #84 tab.ec Home Medications: Home Meds Finasteride [Proscar] 5 mg PO 1600 11/29/17 [History] L.acidoph,Paracasei, B.lactis [Probiotic] 1 cap PO 1600 11/29/17 [History] Multivitamin [Daily Multiple Vitamin] 1 tab PO DAILY 11/29/17 [History] Pravastatin [Pravachol] 20 mg PO DAILY 11/29/17 [History] Tamsulosin [Flomax] 0.4 mg PO 1600 11/29/17 [History] Metoprolol Succinate [Toprol XL] 25 mg PO 11/30/17 [History] Acetaminophen/oxyCODONE [Percocet 325-5 MG] 1 - 2 tab PO Q6H PRN #60 tablet [Rx] Aspirin [Ecotrin] 325 mg PO BID #84 tab.ec 12/01/17 [Rx] Bisacodyl [Dulcolax] 5 mg PO DAILY PRN tablet 12/01/17 [Rx] Docusate Sodium [Colace] 100 mg PO BID cap 12/01/17 [Rx] Famotidine [Pepcid] 20 mg PO Q12H tablet 12/01/17 [Rx] Magnesium Hydroxide [Milk of Magnesia] 30 ml PO BID PRN cup 12/01/17 [Rx] Sennosides [Senna] 8.6 mg PO BID PRN tablet 12/01/17 [Rx] Referrals: Lalita Aceves, [facility] [Physician Paper Spooler] - - Patient Data Vitals - Most Recent: Last Vital Signs Temp 98.2 F 12/01/17 04:37 Pulse 76 12/01/17 06:28 Resp 16 12/01/17 07:00 BP 140/89 12/01/17 06:28 Pulse Ox 94 L 12/01/17 06:00 Weight - Most Recent: 243 lb 9.6 oz I&O - Last 24 hours: Intake & Output 11/30/17 12/01/17 12/01/17 22:59 06:59 14:59 Intake Total 1250 1450 Output Total 500 400 Balance 750 1050 Lab Results - Last 24 hrs: Laboratory Results - last 24 hr 12/01/17 12/01/17 Range/Units 06:00 06:00 WBC 10.14 H (4.23-9.07) K/mm3 RBC 4.06 L (4.63-6.08) M/mm3 Hgb 12.5 L (13.7-17.5) gm/L Hct 38.2 L (40.1-51.0) % MCV 94.1 H (79.0-92.2) fl MCH 30.8 (25.7-32.2) pg MCHC 32.7 (32.2-35.5) g/dl RDW Std Deviation 45.3 H (35.1-43.9) fL Plt Count 174 (163-337) K/mm3 MPV 9.6 (9.4-12.3) fl Sodium 136 (136-145) mEq/L Potassium 4.0 (3.5-5.1) mEq/L Chloride 103 (98-107) mEq/L Carbon Dioxide 25 (21-32) mEq/L Anion Gap 12.0 (5-15) BUN 17 (7-18) mg/dL Creatinine 1.1 (0.7-1.3) mg/dL Est Cr Clr Drug Dosing 62.75 mL/min Estimated GFR (MDRD) > 60 (>60) mL/min BUN/Creatinine Ratio 15.5 (14-18) Glucose 112 (83-115) mg/dL Calcium 8.4 L (8.5-10.1) mg/dL Total Bilirubin 0.4 (0.2-1.0) mg/dL AST 26 (15-37) U/L ALT 14 L (16-63) U/L Alkaline Phosphatase 52 (46-116) U/L Total Protein 5.8 L (6.4-8.2) g/dl Albumin 3.1 L (3.4-5.0) g/dl Globulin 2.7 gm/dL Albumin/Globulin Ratio 1.2 (1-2) Med Orders - Current: Current Medications Acetaminophen (Tylenol) 650 mg PO Q6H PRN PRN Reason: Pain (moderate 4-6) Last Admin: 12/01/17 04:11 Dose: 650 mg Aspirin (Ecotrin) 325 mg PO BID [facility] Last Admin: 12/01/17 10:43 Dose: 325 mg Bisacodyl (Dulcolax) 5 mg PO DAILY PRN PRN Reason: Constipation Diphenhydramine HCl (Benadryl) 25 mg IVPUSH Q6H PRN PRN Reason: Pruritis Docusate Sodium (Colace) 100 mg PO BID [facility] Last Admin: 12/01/17 10:43 Dose: 100 mg Ephedrine Sulfate (Ephedrine Sulfate) 5 mg IVPUSH ASDIRECTED PRN PRN Reason: Hypotension Famotidine (Pepcid) 20 mg PO Q12H [facility] Last Admin: 12/01/17 10:43 Dose: 20 mg Finasteride (Proscar) 5 mg PO DAILY@1600 [facility] Last Admin: 11/30/17 15:22 Dose: 5 mg Ketorolac Tromethamine (Toradol) 15 mg IVPUSH Q6H PRN PRN Reason: Pain Last Admin: 12/01/17 06:27 Dose: 15 mg Magnesium Hydroxide (Milk Of Magnesia) 30 ml PO BID PRN PRN Reason: Constipation Metoprolol Succinate (Toprol Xl) 25 mg PO [facility] Last Admin: 12/01/17 06:28 Dose: 25 mg Morphine Sulfate (Morphine) 2 mg IVPUSH Q2H PRN PRN Reason: Breakthrough Pain Multivitamins (Thera) 1 each PO DAILY [facility] Last Admin: 12/01/17 10:42 Dose: 1 each Naloxone HCl (Narcan) 0.1 mg IVPUSH Q5M PRN PRN Reason: Oversedation Ondansetron HCl (Zofran) 4 mg IVPUSH Q6H PRN PRN Reason: Nausea/Vomiting Oxycodone/Acetaminophen (Percocet 325-5 Mg) 1 - 2 tab PO Q4H PRN PRN Reason: Pain Saccharomyces Boulardii (Florastor) 250 mg PO DAILY [facility] Last Admin: 12/01/17 10:42 Dose: 250 mg Senna (Senna) 8.6 mg PO BID PRN PRN Reason: Constipation Simvastatin (Zocor) 10 mg PO DAILY [facility] Last Admin: 12/01/17 10:42 Dose: 10 mg Sodium Chloride (Saline Flush) 10 ml FLUSH ASDIRECTED PRN PRN Reason: Keep Vein Open Tamsulosin HCl (Flomax) 0.4 mg PO DAILY@1600 [facility] Last Admin: 11/30/17 15:22 Dose: 0.4 mg Discontinued Medications Bupivacaine HCl (Sensorcaine-Mpf 0.75%) Confirm Administered Dose 30 ml .ROUTE .STK-MED ONE Stop: 11/30/17 07:43 Bupivacaine HCl (Marcaine 0.25%) Confirm Administered Dose 30 ml .ROUTE .STK- MED ONE Stop: 11/30/17 08:10 Last Admin: 11/30/17 10:26 Dose: 30 ml Cefazolin Sodium (Ancef) Confirm Administered Dose 2 gm .ROUTE .STK-MED ONE Stop: 11/30/17 08:09 Last Admin: 11/30/17 10:21 Dose: 2 gm Morphine Sulfate 8 mg/Epinephrine HCl 0.3 mg/Cefuroxime Sodium 750 mg/Ketorolac Tromethamine 30 mg/Sodium Chloride 27.9 ml 0 mg .XX ONETIME ONE Stop: 11/30/17 09:01 Last Admin: 11/30/17 13:27 Dose: Not Given Dexamethasone (Dexamethasone) Confirm Administered Dose 4 mg .ROUTE .STK-MED ONE Stop: 11/30/17 07:42 Ephedrine Sulfate (Ephedrine In Ns) Confirm Administered Dose 25 mg .ROUTE .STK- MED ONE Stop: 11/30/17 10:34 Fentanyl (Sublimaze) Confirm Administered Dose 100 mcg .ROUTE .STK-MED ONE Stop: 11/30/17 08:54 Fentanyl (Sublimaze) 50 mcg IVPUSH Q5M PRN PRN Reason: Pain Finasteride (Proscar) 5 mg PO WITHLUNCH [facility] Last Admin: 11/30/17 13:06 Dose: Not Given Lactated Ringer's (Ringers, Lactated) 1,000 mls @ 125 mls/hr IV ASDIRECTED [facility] Last Admin: 11/30/17 08:25 Dose: 125 mls/hr Cefazolin Sodium/Dextrose 2 gm (/ Premix) 50 mls @ 100 mls/hr IV Q8H [facility] Stop: 12/01/17 08:29 Last Admin: 12/01/17 10:44 Dose: 100 mls/hr Lactated Ringer's (Ringers, Lactated) Confirm Administered Dose 2,000 mls @ as directed .ROUTE .STK-MED ONE Stop: 11/30/17 07:42 Lidocaine HCl (Xylocaine-Mpf 1%) Confirm Administered Dose 4 mls @ as directed .ROUTE .STK-MED ONE Stop: 11/30/17 07:43 Iodine (Iodine 2% Mild Tincture) Confirm Administered Dose 30 ml .ROUTE .STK- MED ONE Stop: 11/30/17 08:10 Last Admin: 11/30/17 10:19 Dose: 18 ml Iodine (Iodine 2% Mild Tincture) Confirm Administered Dose 30 ml .ROUTE .STK- MED ONE Stop: 11/30/17 08:38 Ketamine HCl (Ketalar) Confirm Administered Dose 500 mg .ROUTE .STK-MED ONE Stop: 11/30/17 07:43 Lidocaine/Sodium Bicarbonate (Buffered Lidocaine 1% In Ns 8.4%) 0.25 ml IDERM ONETIME PRN PRN Reason: Prior to IV Start Stop: 11/30/17 18:00 Last Admin: 11/30/17 08:25 Dose: 0.25 ml Metoprolol Succinate (Toprol Xl) 25 mg PO DAILY [facility] Midazolam HCl (Versed 1 Mg/Ml) Confirm Administered Dose 2 mg .ROUTE .STK-MED ONE Stop: 11/30/17 07:42 Morphine Sulfate (Duramorph Pf) Confirm Administered Dose 10 mg .ROUTE .STK-MED ONE Stop: 11/30/17 07:43 Ondansetron HCl (Zofran) 4 mg IVPUSH ONETIME PRN PRN Reason: Nausea/Vomiting Phenylephrine HCl (Phenylephrine In Ns 100 Mcg/Ml) Confirm Administered Dose 1 mg .ROUTE .STK-MED ONE Stop: 11/30/17 10:02 Propofol (Diprivan 20 Ml) Confirm Administered Dose 600 mg .ROUTE .STK-MED ONE Stop: 11/30/17 07:42 Simvastatin (Zocor) 10 mg PO ONETIME ONE Stop: 11/30/17 13:28 Last Admin: 11/30/17 13:44 Dose: 10 mg [facility]amsulosin [facility] (Flomax) [facility] Last Admin: 11/30/17 13:06 Dose: Not Given Tranexamic Acid (Cyklokapron) Confirm Administered Dose 1,000 mg .ROUTE .STK- MED ONE Stop: 11/30/17 08:09 Last Admin: 11/30/17 10:28 Dose: 1,000 mg Vancomycin HCl (Vancomycin) Confirm Administered Dose 1 gm .ROUTE .STK-MED ONE Stop: 11/30/17 08:09 Last Admin: 11/30/17 10:27 Dose: 1 gm
--- NOTE | 2017-12-01 13:00 | PCM48HPAN ---
Post Anesthesia Note - EVALUATION WITHIN 48HRS OF ANESTHETIC Vital Signs in Normal Range: Yes Patient Participated in Evaluation: Yes Respiratory Function Stable: Yes Airway Patent: Yes Cardiovascular Function Stable: Yes Hydration Status Stable: Yes Pain Control Satisfactory: Yes Nausea and Vomiting Control Satisfactory: Yes Mental Status Recovered: Yes
--- NOTE | 2017-12-02 09:00 | PCM.OPNOTE ---
- General Post-Op/Procedure Note Date of Surgery/Procedure: 11/30/17 Operative Procedure(s): left total hip arthroplasty Pre Op Diagnosis: left hip osteoarthrosis Post-Op Diagnosis: Same Anesthesia Technique: Local, MAC, Spinal Primary Surgeon: Edy Menchaca Anesthesia Provider: Yadi Henson Program Therapist: Lalita Aceves Program Therapist: Reba Zavaleta EBMerry in mLs: 300 Complications: None Condition: Good Free Text/Narrative:: 54 6 36+7
--- NOTE | 2017-12-02 10:46 | OR ---
DATE OF OPERATION: 11/30/2017 SURGEON: Edy Menchaca MD PROCEDURE: Left total hip arthroplasty. PREOPERATIVE DIAGNOSIS: Left hip osteoarthrosis. POSTOPERATIVE DIAGNOSIS: Left hip osteoarthrosis. ANESTHESIA TECHNIQUE: Local MAC spinal. ANESTHESIA PROVIDER: Judy Saravia. WHEEL AND PINION INSPECTOR: Santos Aceves PA-C and Reba Zavaleta LPN. ESTIMATED BLOOD LOSS: 100 mL. COMPLICATIONS: None. CONDITION: Stable. IMPLANT: 1. Aleksey size 54 solid Tritanium acetabular cup. 2. [place] size 6 Accolate II stem. 3. Aleksey size 36 + 7 mm Biolox ceramic femoral head. DESCRIPTION OF PROCEDURE: Patient was identified in the preoperative holding area. Proper site was marked and identified by the surgeon. The patient was taken back to operating theater, where after adequate anesthesia, the patient was placed in the right lateral decubitus position. Axillary roll was placed. All bony prominences were well padded. Pegs were then placed and well padded. The patient's gluteal fold was parallel to the floor. The left hip was then sterilely prepped and draped in the usual sterile fashion. OR time-out was performed. The patient received 2 g IV Ancef. At this time, a standard posterior incision was made, centered over the greater trochanter. This was taken down to the IT band and gluteal fascia, which was incised along the incisional length. This was taken down to the short external rotators, which were then incised all the way down to the level of the lesser trochanter. Hip was then dislocated. Neck cut was then completed. The anterior and posterior acetabular retractors were then placed. All remaining pulvinar and labrum were removed. Starting with a 47 reamer, I was able to ream up to a 54 which was found to have good adequate bite. 54 trial was found to be adequate. At this time, a 54 mm Tritanium acetabular cup was placed in a roughly 40 degrees of abduction along with 20-30 degrees of anteversion. 36 mm 10 degree elevated liner was then impacted in place. Attention was turned to the femur. Femoral elevator was placed on the lesser trochanter. Box chisel was used out laterally. Starter awl was placed down the canal. Starting with the 0 broach, I was able to broach up to a size 6, which was found to be rotationally and vertically stable. Trial implants were then placed starting with a size 0, was found to be short, so at this time, we did a +7 and it was found to have adequate presybeterian of leg lengths and was stable throughout range of motion. Bone hook was used to dislocate the hip. At this time, size 6 Accolade II stem was impacted into place. A 36+ 7 mm head was then impacted into place and hip was relocated. #5 Ethibond suture was used for closure of the short external rotators and the capsule. 1 L dilute Betadine solution was then irrigated through the hip along with 3 L pulse lavage irrigation with Ancef. Topical tranexamic acid and vancomycin powder were then placed. #2 barbed suture was used for closure of the IT band and gluteal fascia, 2-0 Vicryl was used subcutaneously and Prineo was used for the skin. The patient tolerated procedure well and was sent to PACU in stable condition. OPERATION PERFORMED: ANESTHESIA: VIN /[id number]
== END 2017-12-01 13:55 | disposition home or self-care (01) | DRG 470 ==
LOC: JD.MS 07:53
PROVIDERS: ADMIT Orthopaedic Surgery; ATTEND Orthopaedic Surgery
PROC: 0SRB0JZ Replacement of Left Hip Joint with Synthetic Substitute, Open Approach (ICD-10-PCS; principal; 2017-11-30)
PROC: 3E0U029 Introduction of Other Anti-infective into Joints, Open Approach (ICD-10-PCS; principal; 2017-11-30)
DX: M16.12 Unilateral primary osteoarthritis, left hip (principal); I10 Essential (primary) hypertension; E78.5 Hyperlipidemia, unspecified; E66.9 Obesity, unspecified; R97.20 Elevated prostate specific antigen [PSA]; R33.9 Retention of urine, unspecified; K64.9 Unspecified hemorrhoids; E78.00 Pure hypercholesterolemia, unspecified; L57.8 Other skin changes due to chronic exposure to nonionizing radiation; R00.2 Palpitations; Z79.899 Other long term (current) drug therapy; Z79.82 Long term (current) use of aspirin; Z87.898 Personal history of other specified conditions; Z86.73 Personal history of transient ischemic attack (TIA), and cerebral infarction without residual deficits; Z98.890 Other specified postprocedural states
CPT/HCPCS: 01214; 36415; 73501-26-LT; 73501-LT; 80053; 85027; 86850; 86900; 86901; 87641; 94762; 97110-GP; 97116-GP; 97161-GP; 97165-GO; 97530-GO; 97535-GO; A9270-GY; C1776; J0171; J0690; J0697; J1100; J1885; J2001; J2250; J2270; J2704; J3010; J3370; J3490; J7050; J7120